=== PATIENT | female | born 1950 | race Caucasian/White ===

== ENCOUNTER 2017-04-14 16:06 | Emergency (ER) | payer MEDICARE, OTHER ==
[~2017-04-14] VITALS: Ht 157.5 cm; Wt 56.0 kg
[2017-04-14 16:07] VITALS: BP 179/84; PULSE 84; RESP 15; TEMP 98.3; O2SAT 98
[2017-04-14] MEDS ORDERED: BACT800T5 PO (16:38)
[2017-04-14] MEDS ORDERED: PRED20 PO (16:52)
[2017-04-14] MEDS ORDERED: ZANT150T2 PO (16:52)
--- NOTE | 2017-04-14 16:54 | PD ---
HPI Chief Complaint: Skin Problem Time Seen by Provider: 16:48 Travel History International Travel<30 days: No Contact w/Intl Traveler<30days: No Traveled to known affect area: No History of Present Illness HPI 58-year-old female presents to the emergency department for evaluation of skin rash that started during the night last night. Patient's that she has been on Bactrim for approximately week for a skin infection. She is still currently taking and has 1 day left. Patient states that she is not taking any other new medications. No new creams or lotions. Patient states the rash is itchy. No fevers or chills. No swelling, tongue, throat. No shortness of breath or wheezing. No chest pain. No abdominal pain. No nausea, vomiting, diarrhea. Patient has taken Benadryl [id number]. PFSH Past Medical History Hx Anticoagulant Therapy: Yes (XARELTO) Cardiovascular Problems: Yes (A FIB, HTN) Diminished Hearing: No ?: Unknown Social History Alcohol Use: No Tobacco Use: No Substance Use: No Allergies-Medications (Allergen,Severity, Reaction): Coded Allergies: No Known Allergies (Unverified , 04/14/17) Reported Meds & Prescriptions Reported Meds & Active Scripts Active Reported Bactrim DS (Sulfamethoxazole-Trimethoprim) 800-160 Mg Tab 1 Tab PO BID Review of Systems Except as stated in HPI: all other systems reviewed are Neg Physical Exam Narrative GENERAL: Well-nourished, well-developed female patient, ambulatory. Afebrile SKIN: Focused skin assessment warm/dry. Patient has erythematous plaques to the chest, bilateral upper extremities, abdomen. No warmth or evidence of infection. HEAD: Normocephalic. Atraumatic. EYES: No scleral icterus. No injection or drainage. NECK: Supple, trachea midline. No JVD or lymphadenopathy. CARDIOVASCULAR: Regular rate and rhythm without murmurs, gallops, or rubs. RESPIRATORY: Breath sounds equal bilaterally. No accessory muscle use. Lungs sounds are clear to auscultation. GASTROINTESTINAL: Abdomen soft, non-tender, nondistended. MUSCULOSKELETAL: No cyanosis, or edema. BACK: Nontender without obvious deformity. No CVA tenderness. Data Data Last Documented VS Vital Signs Date Time Temp Pulse Resp B/P (MAP) Pulse Ox O2 Delivery O2 Flow Rate FiO2 04/14/17 16:07 98.3 84 15 179/84 (115) 98 Orders Orders Dexamethasone Inj (Decadron Inj) (04/14/17 17:00) Famotidine (Pepcid) (04/14/17 17:00) [facility] Medical Decision Making Medical Screen Exam Complete: Yes Emergency Medical Condition: Yes Medical Record Reviewed: Yes Differential Diagnosis Allergic reaction versus urticaria versus cellulitis Narrative Course 66-year-old female presents to the emergency department for evaluation of skin rashes started last night. Patient is on Bactrim for a skin infection. She states a skin infection is healed. She has approximately one day left of the Bactrim. I encouraged her to stop taking this as the infection is gone and reaction could possibly be from the Bactrim. Patient is given dexamethasone 8 mg IM, famotidine 20 mg by mouth. She'll be discharged with a prescription for prednisone, Zantac. She is to continue Benadryl [id number] as needed. She verbalizes agreement and understanding. She is instructed to return for any acute worsening of symptoms. The patient was discharged in stable condition with instructions, including return instructions and follow up instructions. Diagnosis Primary Impression: Allergic reaction Qualified Codes: T78.40XA - Allergy, unspecified, initial encounter Referrals: Primary Care Physician call for appointment Patient Instructions: General Allergic Reaction (ED), General Instructions Additional Instructions: Take prednisone as directed. Start this tomorrow. Take Zantac as directed. Continue [id number] Benadryl as needed for itching. Stop taking Bactrim. Follow-up with your primary care physician. Return to the emergency department for any acute worsening of symptoms. Med/Other Pt SpecificInfo: Prescription(s) given Scripts Ranitidine (Zantac) 150 Mg Tab 150 MG PO BID for Reduce Stomach Acid for 5 Days, #10 TAB 0 Refills Prov: Shefali Singh 04/14/17 Prednisone (Prednisone) 20 Mg Tab 40 MG PO DAILY for 4 Days, #8 TAB 0 Refills Take 40 mg (2 tablets) daily for 5 days Prov: Shefali Singh 04/14/17 Disposition: 01 DISCHARGE HOME Condition: Stable Shefali Singh Apr 14, 2017 16:54
[2017-04-14] MEDS ORDERED: DEXAMETHASONE SOD PHOS 4 MG/ML VIAL IM ONE (17:00)
[2017-04-14] MEDS ORDERED: FAMOTIDINE 20 MG TAB PO ONE (17:00)
== END 2017-04-14 16:59 | disposition home or self-care (01) ==
LOC: NEPK 16:06
DX: T78.40XA Allergy, unspecified, initial encounter (principal); I48.91 Unspecified atrial fibrillation; I10 Essential (primary) hypertension; Z79.01 Long term (current) use of anticoagulants
CPT/HCPCS: 96372; 99284; J1100